=== PATIENT | male | born 1940 | race Caucasian/White ===

== ENCOUNTER 2017-12-21 06:59 | Day surgery (SDC) | payer MEDICARE ==
[~2017-12-21] VITALS: Ht 172.7 cm; Wt 70.8 kg
[~2017-12-21 06:59] MED LIST: PRAV20TA4 PO; RABE20TA27 PO; SODIUM CHLORIDE 0.9% 1000ML 1,000 ML IV ONE
[2017-12-21 08:08] VITALS: BP 152/77
[2017-12-21] MEDS ORDERED: PROPOFOL 10 MG/ML 20ML VIAL IV ONE (09:35)
[2017-12-21 09:48] VITALS: BP 95/42
== END 2017-12-21 10:16 ==
LOC: DAH 06:59 → ENDO 06:59
PROVIDERS: ATTEND Internal Medicine Gastroenterology
DX: Z12.11 Encounter for screening for malignant neoplasm of colon (principal); K57.30 Diverticulosis of large intestine without perforation or abscess without bleeding; Z86.010 Personal history of colon polyps; Z68.30 Body mass index [BMI] 30.0-30.9, adult; E78.5 Hyperlipidemia, unspecified; Z79.899 Other long term (current) drug therapy
CPT/HCPCS: A4606; G0105; J2704; J7030